=== PATIENT | female | born 1935 | race Caucasian/White ===

== ENCOUNTER → 2020-05-03 08:56 | Outpatient (CLI) | payer MEDICARE, BC ==
[2020-03-14 08:57] VITALS: BMI 23.7
[~2020-05-03 08:56] MED LIST: ALENDRONATE SOD10 MG PO; ASPIRIN81 MG; B-12 DOTS500 MCG PO; CALCIUM 600 +1 EAC3 PO; CO Q-10100 MG PO; COREG 3.1253.125 MG; COZAAR50 MG; FISH OIL 1,0001 CA1; HYDROCHLOROTH12.5 M1 PO; LEXAPRO5 MG PO; LIPITOR10 MG; MERIBIN5 MG PO; PROTONIX40 MG PO; ZYRTEC10 MG PO
== END | disposition home or self-care (01) ==
LOC: D.US 04-18 09:00
PROVIDERS: ATTEND Internal Medicine Gastroenterology
DX: K21.9 Gastro-esophageal reflux disease without esophagitis (principal); R07.89 Other chest pain

== ENCOUNTER → 2020-06-22 09:12 | Outpatient (CLI) | payer MEDICARE, BC ==
[2020-03-14 08:57] VITALS: BMI 23.7
== END | disposition home or self-care (01) ==
LOC: D.NM 09:12
PROVIDERS: ATTEND Internal Medicine Gastroenterology
DX: R10.84 Generalized abdominal pain (principal)